=== PATIENT | female | born 2000 ===

== ENCOUNTER 2024-08-06 06:19 | Day surgery (SDC) | payer BC, SELFPAY ==
[2024-08-06] VITALS (8 sets, daily range): BP systolic 99–120; BP diastolic 52–67; BMI 43.4
[2024-08-06] MEDS: NORMOSOL-R/PLASMALYTE-A 1000 IV (11:02)
== END 2024-08-06 14:39 | disposition home or self-care (01) ==
LOC: SDS 06:19
PROVIDERS: ATTENDING PHYSICIAN Otolaryngology Facial Plastic Surgery
DX: J34.2 Deviated nasal septum (principal); J34.3 Hypertrophy of nasal turbinates
CPT/HCPCS: 30520; 30140; 88304; 88311